=== PATIENT | male | born 1980 | race Caucasian/White ===

== ENCOUNTER 2018-07-01 01:54 | Emergency (ER) | payer BC, OTHER ==
[2018-07-01 02:08] VITALS: BP 137/99; PULSE 76; O2SAT 99
--- NOTE | 2018-07-01 02:32 | ERPHSYRPT ---
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 Pt describes the pain as sharp, constant, 5/10, worse with movement and pt has not taken any pain meds. Pt is able to walk on it. Method of Injury: twisted Occurred: just prior to arrival Quality: constant Severity of Pain-Max: moderate Severity of Pain-Current: moderate Lower Extremities Pain: ankle: left Modifying Factors: Improves With: nothing Associated Symptoms: none Allergies/Adverse Reactions: No Known Drug Allergies Allergy (Verified 07/01/18 02:08) Home Medications: Budesonide/Formoterol Fumarate [Symbicort 80-4.5 Mcg Inhaler] 6.9 gm IH UD PRN 07/01/18 [History] Escitalopram Oxalate 10 mg [Lexapro 10 MG] 10 mg PO DAILY 07/01/18 [History] Lisinopril 10 mg [Zestril 10 MG] 10 mg PO DAILY 07/01/18 [History] Valsartan/Hydrochlorothiazide [Valsartan-Hctz 160-12.5 mg Tab] 1 tablet PO DAILY 07/01/18 [History] - Review of Systems Constitutional: No Fever, No Chills Eyes: No Symptoms Ears, Nose, & Throat: No Symptoms Respiratory: No Cough, No Dyspnea Cardiac: No Chest Pain, No Edema, No Syncope Abdominal/Gastrointestinal: No Abdominal Pain, No Nausea, No Vomiting, No Diarrhea Genitourinary Symptoms: No Dysuria Musculoskeletal: Joint Pain, No Back Pain, No Neck Pain, No Joint Swelling, No Myalgias Skin: No Symptoms, No Rash Neurological: No Dizziness, No Focal Weakness, No Sensory Changes Psychological: No Symptoms Endocrine: No Symptoms All Other Systems: Reviewed and Negative - Past Medical History Cardiac History: Hypertension Respiratory History: Asthma Psycho-Social History: Anxiety - Past Surgical History Past Surgical History: Yes Other Surgical History: hernia surgery when he was a baby - Social History Smoking Status: Never smoker Exposure to second hand smoke: No Drug Use: none Patient Lives Alone: No - Nursing Vital Signs Nursing Vital Signs: Initial Vital Signs Temperature 98.1 F 07/01/18 01:58 Pulse Rate 76 07/01/18 01:58 Blood Pressure 137/99 07/01/18 01:58 O2 Sat by Pulse Oximetry 99 07/01/18 01:58 Pain Scale Pain Intensity 5 - Physical Exam General Appearance: alert Eyes, Ears, Nose, Throat Exam: moist mucous membranes Neck Exam: non-tender, supple Cardiovascular/Respiratory Exam: chest non-tender, normal breath sounds, regular rate/rhythm, no respiratory distress Gastrointestinal/Abdominal Exam: non-tender, guarding Back Exam: normal inspection, No vertebral tenderness Hips Exam: bilateral: non-tender, normal inspection, normal range of motion Legs Exam: bilateral leg: non-tender, normal inspection, normal range of motion Knees Exam: bilateral knee: non-tender, normal inspection, normal range of motion Ankle Exam: left ankle: soft tissue tenderness Neuro/Tendon Exam: normal sensation, normal motor functions Mental Status Exam: alert, oriented x 3, cooperative Skin Exam: normal color, warm, dry SpO2: 99 Oxygen Delivery: Room Air - Course Nursing assessment & vital signs reviewed: Yes Ordered Tests: Active Orders 24 hr Category Date Time Status Андрей Bandage Application -[facility] STAT Care 07/01/18 02:41 Ordered ANKLE (2V) Stat Exams 07/01/18 Ordered - Progress Progress: unchanged Progress Note: 07/01/18 02:42 The patient has no fracture on x ray. Pt will be d/c home with an андрей wrap and motrin. - Departure Time of Disposition: 02:43 Departure Disposition: Home Clinical Impression: Ankle sprain Qualifiers: Encounter type: initial encounter Involved ligament of ankle: unspecified ligament Laterality: left Qualified Code(s): S93.402A - Sprain of unspecified ligament of left ankle, initial encounter Condition: Stable Critical Care Time: No Instructions: Ankle Sprain (DC) Additional Instructions: Follow up with your primary care doctor as needed for ankle pain. Prescriptions: Ibuprofen 200 mg [Motrin 200 mg] 600 mg PO QID PRN #20 tablet PRN Reason: Pain
--- NOTE | 2018-07-01 06:54 | XRAY ---
Indication: Pain following twisting injury. Comparison: None 2 views of the left ankle obtained. No bony, articular, or soft tissue abnormalities.
== END 2018-07-01 02:58 | disposition home or self-care (01) ==
LOC: ED 01:54
DX: S93.402A Sprain of unspecified ligament of left ankle, initial encounter (principal); X50.1XXA Overexertion from prolonged static or awkward postures, initial encounter; Y93.89 Activity, other specified; Y92.63 Factory as the place of occurrence of the external cause; Y99.0 Civilian activity done for income or pay
CPT/HCPCS: 73600; 99283